=== PATIENT | female | born 1990 | race Caucasian/White ===

== ENCOUNTER 2019-11-27 04:54 | Inpatient (IN) | payer SELFPAY ==
[2019-11-27 05:31] VITALS: BMI 29.2
[2019-11-27] MEDS ORDERED: Promethazine HCl 25 MG/ML VIAL IM PRN (05:55)
[2019-11-27] MEDS ORDERED: hydrALAZINE 20 MG/ML VIAL SLOW IVP PRN (05:55)
[2019-11-27] MEDS ORDERED: Methylergonovine 0.2 MG/ML VIAL IM PRN (05:55)
[2019-11-27] MEDS ORDERED: Lidocaine 1% (PF) 30 ML VIAL SC PRN (05:55)
[2019-11-27] MEDS ORDERED: Ondansetron PF 4 MG/2 ML Vial IVP PRN (05:55)
[2019-11-27] MEDS ORDERED: Misoprostol 200 MCG TAB PR PRN (05:55)
[2019-11-27] MEDS ORDERED: HYDROcodone/Acetaminophen 5/325 mg Tablet PO PRN ×2 (05:55)
[2019-11-27] MEDS ORDERED: Ibuprofen 800 MG TAB PO PRN (05:55)
[2019-11-27] MEDS ORDERED: NS / Oxytocin 40 units/1000ml 1,000 ML IV PRN (05:55)
[2019-11-27] MEDS ORDERED: Carboprost 250 MCG/ML AMP IM PRN (05:55)
[2019-11-27] MEDS ORDERED: Butorphanol Tartrate 1 MG/ML VIAL SLOW IVP PRN (05:55)
[2019-11-27 06:43] LABS: Hemoglobin 13.1 g/dL (12.0-16.0); Mean Corpuscular HGB CONC 34.7 g/dL (32.0-36.0); Mean Corpuscular Hemoglobin 30.5 pg (27.0-31.0); Mean Platelet Volume 9.6 fL (7.4-10.4); Platelet Count 167 thou/uL (130-400); RBC Distribution Width 11.5 % (11.5-14.5); Red Blood Cell (RBC) Count 4.31 mill/uL (4.20-5.40); White Blood Cell (WBC) Count 12.6 thou/uL (4.8-10.8)
[2019-11-27 07:20] LABS: Syphilis Antibody Nonreactive (Nonreactive); Syphilis Antibody Index 0.05 S/CO (<1.00 Non-Reactive)
[2019-11-27 07:20] LABS: HBSAg Index 0.19 S/CO (0-0.99); Hep B Surf Ag Non-Reactive S/CO (NonReactive)
[2019-11-27] MEDS ORDERED: Bupivacaine/Epinephrine 0.25% 30 ML VIAL ONE (09:31)
[2019-11-27] MEDS ORDERED: Bupivacaine HCl 0.5%/Epinephrine 1:200,000/PF 30 ml Vial ONE (09:31)
[2019-11-27] MEDS ORDERED: NS / Oxytocin 40 units/1000ml 1,000 ML ONE (19:14)
[2019-11-27] MEDS ORDERED: Lidocaine 1% (PF) 30 ML VIAL ONE (19:14)
--- NOTE | 2019-11-27 22:56 | PDOC.LDHP ---
Labor and Delivery H&P Chief complaint: loss of fluid HPI: patient started nina at 0020 on 11/27/19. At 0200 she reports a large sudden gush of fluid which was clear. Current gestational age (weeks): 39 Dating criteria: last menstrual period, other Grav: 1 Para: 0 OB History Details: IUI Current complications: none Abnormal US findings: No Current medications: pre- vitamins Allergies/Adverse Reactions: Allergies Allergy/AdvReac Type Severity Reaction Status Date / Time No Known Allergies Allergy Verified 11/27/19 05:25 Social history: none - Physical Exam Vital signs reviewed and normal: yes General: breathing through contractions Lungs: nonlabored breathing Abdomen: gravid [place] contractions every: q4 mins - Vaginal Exam cm dilated: 8 Effacement: 100% Station: -1 - OB Labs Blood type: O RH: negative Antibody Screen: negative HIV: negative RPR: negative HEPSAg: negative 1 hour GCT: negative GBS: negative Urine drug screen: negative Rubella: immune - Assessment L&D Assessment: term rupture in membranes - Plan Plan: admit to L&D
--- NOTE | 2019-11-27 23:00 | PDOC.LDPN ---
Labor & Delivery Progress Note - Subjective Subjective: painful contractions - Objective Vital signs reviewed and normal: yes General: breathing through contractions Uterine fundus: non tender SVE: 8 Effacement: 100% Station: -1 FHT: category 1 [place] contractions every: q4 Other exam findings: OP presentation Resuscitative measures: maternal position change - Assessment (1) Prolonged labor Code(s): O63.9 - LONG LABOR, UNSPECIFIED Current Visit: Yes Status: Acute Comment: Pt is unchanged for 4 hours with a disfunction labor pattern. Fetus is ROP verified by ultrasound (2) Primigravida Code(s): Z34.00 - ENCNTR FOR SUPRVSN OF NORMAL FIRST , UNSP TRIMESTER Current Visit: Yes Status: Acute Plan: pitocin for augmentation (counseling on epidural) -: Patient agrees to epidural for rest and pitocin. Will consider manual rotation of the fetus.
[2019-11-27] MEDS ORDERED: Fentanyl 4 mcg/Bup 0.1% Cadd 100 ML ONE (23:03)
[2019-11-27] MEDS ORDERED: NS w/ Oxytocin 10 units 500 ML IV SCH (23:15)
[2019-11-27] MEDS: Lactated Ringer's 1,000 ML IV PRN (23:19)
[2019-11-28] MEDS ORDERED: Acetaminophen 325 MG TAB PO PRN (00:30)
[2019-11-28] MEDS ORDERED: Lactated Ringer's 500 ML IV PRN (00:30)
[2019-11-28] MEDS ORDERED: diphenhydrAMINE 50 MG/ML VIAL IVP PRN ×2 (00:30→08:43)
[2019-11-28] MEDS ORDERED: EPHEDRINE 25 MG/5 ML SYRINGE SLOW IVP PRN (00:30)
[2019-11-28] MEDS ORDERED: Naloxone HCl 0.4 mg/ml Vial IVP PRN ×4 (00:30→08:43)
[2019-11-28] MEDS ORDERED: Promethazine HCl 25 MG/ML VIAL IM PRN ×2 (00:30→08:43)
[2019-11-28] MEDS ORDERED: Communication Order-Pharmacy FS SCH ×2 (00:30→08:45)
[2019-11-28] MEDS ORDERED: Ondansetron PF 4 MG/2 ML Vial IVP PRN ×2 (00:30→08:43)
[2019-11-28] MEDS ORDERED: Fentanyl 4 mcg/Bupivacaine 0.1% Cassette 100 ML EPIDURAL SCH (00:30)
[2019-11-28] MEDS: Lactated Ringer's 1,000 ML IV PRN ×2 (00:35→05:18)
[2019-11-28] MEDS ORDERED: Fentanyl 4 mcg/Bup 0.1% Cadd 100 ML ONE (06:24)
[2019-11-28] MEDS ORDERED: Azithromycin 500 MG VIAL ONE (07:09)
[2019-11-28] MEDS ORDERED: Bicitra 30 ML UDCUP PO SCH (07:30)
[2019-11-28] MEDS ORDERED: Azithromycin 500 MG in Sodium Chloride 0.9% 250 ML 250 ML IVPB SCH (07:30)
[2019-11-28] MEDS ORDERED: CEFAZOLIN 2 GM in Premix Bag 1 BAG IVPB SCH (07:30)
--- NOTE | 2019-11-28 07:34 | PDOC.LDPN ---
Labor & Delivery Progress Note - Subjective Subjective: comfortable - Objective Vital signs reviewed and normal: yes General: resting Dilation: 10 Effacement: 100% Station: 0 FHT: category 1 - Assessment (1) Prolonged labor Code(s): O63.9 - LONG LABOR, UNSPECIFIED Current Visit: Yes Status: Acute Comment: Pt is unchanged for 4 hours with a disfunction labor pattern. Fetus is ROP verified by ultrasound (2) Primigravida Code(s): Z34.00 - ENCNTR FOR SUPRVSN OF NORMAL FIRST , UNSP TRIMESTER Current Visit: Yes Status: Acute Plan: other -: Pushing x 3 hours. is OP presentation. Failed attempted at manual rotation to OA discussed options for care including PCS indicated by prolonged 2nd stage Proceed with primary
[2019-11-28] MEDS ORDERED: PHENYLEPHRINE-NS 100 MCG/ML 10 ML SYRINGE ONE (07:48)
[2019-11-28] MEDS ORDERED: Oxytocin 10 UNITS/ML VIAL ONE (07:48)
[2019-11-28] MEDS ORDERED: Dexamethasone 4 mg/ml Vial ONE (07:48)
[2019-11-28] MEDS ORDERED: Ondansetron PF 4 MG/2 ML Vial ONE (07:48)
[2019-11-28] MEDS ORDERED: Ketorolac Tromethamine 30 MG/ML VIAL ONE (07:48)
[2019-11-28] MEDS ORDERED: MORPHINE 5 MG/10 ML PF VIAL ONE (07:48)
[2019-11-28] MEDS ORDERED: Promethazine HCl 25 MG SUPP PR PRN (08:43)
[2019-11-28] MEDS ORDERED: L&D-Morphine 4 MG/ML VIAL SLOW IVP PRN (08:43)
[2019-11-28] MEDS ORDERED: Ondansetron HCl/PF 4 MG/2 ML Vial IVP PRN (08:43)
[2019-11-28] MEDS ORDERED: Naloxone HCl 0.4 mg/ml Vial IV PRN (08:43)
[2019-11-28] MEDS ORDERED: HYDROmorphone 2 MG/ML VIAL SLOW IVP PRN (08:43)
[2019-11-28] MEDS ORDERED: Meperidine HCl/PF 25 MG/ML VIAL SLOW IVP PRN (08:43)
[2019-11-28] MEDS ORDERED: Ketorolac Tromethamine 30 MG/ML VIAL IVP SCH (08:45)
--- NOTE | 2019-11-28 09:19 | PDOC.OPDEL ---
OB Operative/Delivery Note Delivery Dr/Surgeon: Zbigniew Assist: Rashi Guzman Pre-Delivery Diagnosis: active labor, other (arrest of descent) Weeks gestation: 39 Anesthesia: epidural - Findings A Sex: male ("Marcelino") Weight: 8 lb 2.902 oz - 1 min: 7 - 5 min: 8 - Additional Findings/Plan Placenta delivered: spontaneous findings: low transverse hysterotomy with extension (on left) Estimated blood loss: 1005ml Post delivery plan: routine recovery
--- NOTE | 2019-11-28 09:42 | OP ---
DATE OF PROCEDURE: 11/28/2019 PREOPERATIVE DIAGNOSES: 1. G1 with 39-week intrauterine . 2. Active labor. 3. Arrest of descent. POSTOPERATIVE DIAGNOSES: 1. G1 with 39-week intrauterine . 2. Active labor. 3. Arrest of descent. PROCEDURE PERFORMED: Primary low-transverse section via Pfannenstiel. ASSISTANTS: 1. Linn Guzman CNM. 2. Dr. Markham, Route Delivery Driver. ANESTHESIA: Epidural. COMPLICATIONS: None. QUANTITATIVE BLOOD LOSS: 1005ml FINDINGS: Male in occiput posterior presentation. Apgars 7 and 8. Weight, 3711g. required blow-by resuscitation with emergency veterinary technician present. INDICATIONS: The patient was admitted in labor and spontaneous rupture of membranes. She got complete and pushed for 3 hours with little to no descent. The was noted to be in occiput posterior presentation and failed multiple attempts to rotate. The decision was made to proceed with primary low transverse . DESCRIPTION OF PROCEDURE: The patient was taken the operating room, where epidural anesthesia was found to be adequate. She was prepared and draped in normal sterile fashion in the dorsal supine position with leftward tilt. A Pfannenstiel skin incision was made with a scalpel and carried down to the underlying layer of fascia. The fascia was incised in midline and extended laterally with Matthews scissors. The rectus muscles were dissected off the fascia both bluntly and sharply. The rectus muscles were in midline and the peritoneum was identified and entered bluntly. The peritoneal opening was extended laterally with traction with good visualization of the bladder. An Julian retractor was placed in the abdomen and the lower uterine segment was incised in a transverse fashion with a scalpel. The 's head was delivered atraumatically. The nose and mouth were suctioned with bulb suction. The cord was clamped and cut. The infant was handed off to awaiting nursery team. The placenta was delivered spontaneously and the uterus was cleared of all clots and debris. An extension was noted on the left side of the incision and was incorporated into the hysterotomy repair, which was closed in a running locked fashion with 1 Monocryl. A second imbricating layer was used for good hemostasis. A small hematoma was noted at the superior aspect of the incision in midline. This was drained and the [id number] suture was placed in an area of bleeding at this spot. Good hemostasis was noted and the hematoma was not noted to be expanding at that time. The abdomen was copiously irrigated. The Julian retractor was removed. The gutters were cleared of all clots. Again, good hemostasis was noted. The fascia was repaired in a running fashion with 0 PDS. The subcutaneous layer was reapproximated with plain gut and the skin was closed with 4-0 Monocryl with Dermabond. The patient tolerated the procedure well. Sponge, lap, and needle counts were correct x2. The patient was taken to the recovery room in stable condition. Job ID: [id number] [facility]
[2019-11-28] MEDS ORDERED: hydrALAZINE 20 MG/ML VIAL SLOW IVP PRN (11:13)
[2019-11-28] MEDS ORDERED: NS / Oxytocin 40 units/1000ml 1,000 ML IV SCH (11:13)
[2019-11-28] MEDS ORDERED: Adacel (T-DAP) 0.5 ML SYRINGE IM ONE (11:13)
[2019-11-28] MEDS ORDERED: Methylergonovine 0.2 MG/ML VIAL IM PRN (11:13)
[2019-11-28] MEDS ORDERED: Misoprostol 200 MCG TAB PR PRN (11:13)
[2019-11-28] MEDS ORDERED: Ferrous Sulfate 325 MG TAB PO SCH (11:30)
[2019-11-28] MEDS ORDERED: Prenatal Vitamin 1 TAB PO SCH (11:30)
[2019-11-28] MEDS: Lactated Ringer's 1,000 ML IV SCH ×2 (12:10→21:53)
[2019-11-28] MEDS: Ferrous Sulfate 325 MG TAB PO SCH (12:12)
[2019-11-28] MEDS: Ketorolac Tromethamine 30 MG/ML VIAL IVP PRN ×2 (15:21→22:00)
[2019-11-28] MEDS ORDERED: HYDROcodone/Acetaminophen 5/325 mg Tablet PO PRN (20:45)
[2019-11-28] MEDS ORDERED: Sodium Chloride 0.9% 10 ML ONE (21:52)
[2019-11-28] MEDS: Simethicone Chewable 80 MG TAB PO PRN (22:00)
[2019-11-28] MEDS: HYDROcodone/Acetaminophen 5/325 mg Tablet PO PRN (22:02)
[2019-11-29] MEDS: Lactated Ringer's 1,000 ML IV SCH ×2 (00:52→07:00)
[2019-11-29] MEDS: Simethicone Chewable 80 MG TAB PO PRN ×2 (05:03→22:22)
[2019-11-29] MEDS: Ibuprofen 800 MG TAB PO SCH ×3 (05:04→22:21)
[2019-11-29 05:49] LABS: Hemoglobin 10.1 g/dL (12.0-16.0); Mean Corpuscular HGB CONC 34.1 g/dL (32.0-36.0); Mean Corpuscular Hemoglobin 30.9 pg (27.0-31.0); Mean Corpuscular Volume 90.7 fL (78.0-98.0); Mean Platelet Volume 8.9 fL (7.4-10.4); Platelet Count 155 thou/uL (130-400); RBC Distribution Width 11.6 % (11.5-14.5); Red Blood Cell (RBC) Count 3.27 mill/uL (4.20-5.40); White Blood Cell (WBC) Count 17.2 thou/uL (4.8-10.8)
[2019-11-29] MEDS: Ferrous Sulfate 325 MG TAB PO SCH (06:59)
[2019-11-29] MEDS: Prenatal Vitamin 1 TAB PO SCH (08:13)
[2019-11-29] MEDS: Docusate Calcium (SURFAK) 240 MG CAP PO PRN ×2 (08:13→22:21)
[2019-11-29] MEDS: HYDROcodone/Acetaminophen 5/325 mg Tablet PO PRN (12:50)
--- NOTE | 2019-11-29 12:53 | PDOC.PP ---
Post Progress Note Post Day #: 1 Subjective: doing well. Pain is well controlled. Sh is thinking about giving up on breast feeding. PO intake tolerated: yes Flatus: yes Ambulation: yes Vital Signs (12 hours) Temp Pulse Resp BP Pulse Ox 11/29/19 12:02 98.2 F 86 18 110/57 L 11/29/19 08:15 97.8 F 82 18 119/61 98 11/29/19 05:00 98.5 F 85 16 131/67 Weight Weight 181 lb - Physical Examination General: NAD Respiratory: non-labored breathing Abdominal: no distention, appropriately TTP Fundus firm & at: -2 Extremities: negative homans (B) Skin: CS incision dry & intact, no rash Neurological: no gross focal deficits Psychiatric: A&Ox3, normal affect Result Diagrams: 11/29/19 05:31 Additional Labs: Post Labs Blood Type O NEGATIVE 11/27/19 07:29 Hep Bs Antigen Non-Reactive S/CO (NonReactive) 11/27/19 06:27 (1) Prolonged labor Code(s): O63.9 - LONG LABOR, UNSPECIFIED Status: Acute Comment: Pt is unchanged for 4 hours with a disfunction labor pattern. Fetus is ROP verified by ultrasound (2) Primigravida Code(s): Z34.00 - ENCNTR FOR SUPRVSN OF NORMAL FIRST , UNSP TRIMESTER Status: Acute - Assessment/Plan A: G1 now p1 s/p PCS for failure of decent P: Routine pp care Ambulate x3 in halls Pain control . goals and expectations reviewed.
[2019-11-30] MEDS: Lactated Ringer's 1,000 ML IV SCH ×2 (05:44→07:38)
[2019-11-30] MEDS: Ibuprofen 800 MG TAB PO SCH ×2 (05:44→14:04)
[2019-11-30 06:09] VITALS: TEMP 98
[2019-11-30] MEDS: Ferrous Sulfate 325 MG TAB PO SCH ×2 (07:37→17:48)
[2019-11-30] MEDS: Prenatal Vitamin 1 TAB PO SCH (08:49)
[2019-11-30] MEDS: Docusate Calcium (SURFAK) 240 MG CAP PO PRN (08:49)
[2019-11-30] MEDS: Simethicone Chewable 80 MG TAB PO PRN (08:49)
[2019-11-30 10:20] VITALS: BP 114/66
[2019-11-30] MEDS: HYDROcodone/Acetaminophen 5/325 mg Tablet PO PRN (12:37)
--- NOTE | 2019-11-30 16:55 | PDOC.PP ---
Post Progress Note Post Day #: 2 Subjective: Patient is doing well. Up walking to halls. Passing gas. She would like to go home PO intake tolerated: yes Flatus: yes Ambulation: yes Vital Signs (12 hours) Temp Pulse Resp BP BP Pulse Ox 11/30/19 08:00 98.0 F 85 18 114/66 98 11/30/19 05:45 98.0 F 77 16 111/75 98 Weight Weight 181 lb - Physical Examination General: NAD Respiratory: non-labored breathing Abdominal: + bowel sounds, lochia, no distention, appropriately TTP Extremities: negative homans (B) Skin: CS incision dry & intact Neurological: no gross focal deficits Psychiatric: A&Ox3, normal affect Result Diagrams: 11/29/19 05:31 Additional Labs: Post Labs Blood Type O NEGATIVE 11/27/19 07:29 Hep Bs Antigen Non-Reactive S/CO (NonReactive) 11/27/19 06:27 (1) Prolonged labor Code(s): O63.9 - LONG LABOR, UNSPECIFIED Status: Acute Comment: Pt is unchanged for 4 hours with a disfunction labor pattern. Fetus is ROP verified by ultrasound (2) Primigravida Code(s): Z34.00 - ENCNTR FOR SUPRVSN OF NORMAL FIRST , UNSP TRIMESTER Status: Acute - Assessment/Plan A; G1 now P1 sp LTCS for failure of decent with NML POD2 exam P; routine care until discharge Discharge home in is discharged. 10 incision check
== END 2019-11-30 18:15 | disposition home or self-care (01) | DRG 788 ==
LOC: L&D/OP 04:54 → L&D-LIB 20:09 → L&D 11-28 11:02 → 3SW 11-28 11:40
PROVIDERS: ADMIT Obstetrics & Gynecology; ATTEND Obstetrics & Gynecology
PROC: 10D00Z1 Extraction of Products of Conception, Low, Open Approach (ICD-10-PCS; principal; 2019-11-27)
PROC: 3E0334Z Introduction of Serum, Toxoid and Vaccine into Peripheral Vein, Percutaneous Approach (ICD-10-PCS; 2019-11-28)
DX: O63.9 Long labor, unspecified (principal); Z3A.39 39 weeks gestation of pregnancy; Z37.0 Single live birth; O62.1 Secondary uterine inertia; O64.0XX0 Obstructed labor due to incomplete rotation of fetal head, not applicable or unspecified
CPT/HCPCS: 36415; 85027; 85461; 86780; 86850; 86870; 86900; 86901; 87340; 90384; 96372; J0456; J0670; J0690; J1100; J1200; J1885; J2001; J2274; J2405; J2590